=== PATIENT | male | born 2000 | race African-American/Black ===

== ENCOUNTER 2018-08-11 20:06 | Emergency (ER) | payer OTHER ==
[~2018-08-11] VITALS: Ht 182.9 cm; Wt 83.2 kg
[2018-08-11 20:14] VITALS: BP 162/70; PULSE 107
[2018-08-11 22:00] VITALS: TEMP 99.8
== END 2018-08-11 22:31 | disposition home or self-care (01) ==
LOC: COL.ER 20:06
DX: J06.9 Acute upper respiratory infection, unspecified (principal)